=== PATIENT | female | born 1985 | race Hispanic/Latino ===

== ENCOUNTER 2017-03-26 15:01 | Outpatient (CLI) | payer OTHER ==
--- NOTE | 2017-03-26 17:26 | ULT ---
OBSTETRIC SONOGRAM 03/26/17 HISTORY: Second trimester . evaluation. FINDINGS: Multiple transabdominal sonographic views of the gravid uterus show a single intrauterine gestation in breech presentation. The cervix is closed and 4.6 cm in length. Amniotic fluid is within normal l imits. Grade 0 placenta is predominantly posterior. No gross intracranial abnormalities are apparent . spine and kidneys are intact as visualized. Three vessel cord shows a normal insertion. Violetta urements are as follows: Biparietal diameter 19 weeks, 2 days Head circumference 19 weeks, 3 days Abdominal circumference 19 weeks, 5 days Femur length 19 weeks, 3 days Estimated date of delivery based on today's sonogram is 08/17/17. Hadlock percentile equals 72%. IMPRESSION: Single viable intrauterine gestation with estimated gestational age based on today's sonogram of 19 weeks, 3 days. POS: TONE
== END 2017-03-26 15:02 | disposition home or self-care (01) ==
LOC: ULT 15:01
PROVIDERS: ATTEND Family Medicine
DX: Z33.1 Pregnant state, incidental (principal); Z3A.19 19 weeks gestation of pregnancy
CPT/HCPCS: 76805

== ENCOUNTER 2017-04-18 17:12 | Inpatient (IN) | payer OTHER ==
[2017-04-18 17:40] LABS: #Basophils 0.1 thou/uL (0.0-0.2); #Eosinphils 0.3 thou/uL (0.0-0.7); #Lymphocytes 2.4 thou/uL (1.20-3.40); #Monocytes 0.8 thou/uL (0.11-0.59); #Neutrophils 8.6 thou/uL (1.40-6.50); %Basophils 0.6 % (0.0-1.0); %Eosinophils 2.3 % (0.0-10.0); %Monocytes 6.6 % (0.0-10.0); Hematocrit 31.3 % (36.0-47.0); Mean Platelet Volume 6.1 fL (7.4-10.4); Red Blood Cell (RBC) Count 3.39 mill/uL (4.20-5.40); White Blood Cell (WBC) Count 12.1 thou/uL (4.8-10.8)
[2017-04-18] MEDS ORDERED: Ondansetron HCl/PF 4 MG/2 ML Vial ONE (17:44)
[2017-04-18 17:59] LABS: ALT (SGPT) 14 U/L (8-55); AST (SGOT) 18 U/L (5-34); Alkaline Phosphatase 92 U/L (40-150); Anion Gap 14 mmol/L (10-20); BUN (Urea Nitrogen) 10 mg/dL (7.0-18.7); Bilirubin, Total 0.2 mg/dL (0.2-1.2); Calc. Creatinine Clearance 0 mL/min (70-130); Calcium 9.4 mg/dL (7.8-10.44); Carbon Dioxide 21 mmol/L (22-29); Chloride 105 mmol/L (98-107); Estimated GFR-MDRD 87; Globulin 3.3 g/dL (2.4-3.5); Lipase 4 U/L (8-78); Protein, Total 6.7 g/dL (6.0-8.3)
[2017-04-18] MEDS ORDERED: Promethazine HCl 25 MG/ML VIAL ONE (20:52)
[2017-04-18 21:12] LABS: Bilirubin Small (Negative); Blood, Urine Large (Negative); Glucose, Urine (Dipstick) Negative (Negative); Ketone, Urine Trace mg/dL (Negative); Nitrite Negative (Negative); Protein, Urine (Dipstick) 300 mg/dL (Neg-Trace)
[2017-04-18 21:13] LABS: Bacteria/HPF None Seen HPF (None Seen); RBC/HPF GREATER THAN 50-TNTC HPF (0-3); Squamous Epithelial 0-3 HPF (0-3)
[2017-04-18 21:17] LABS: Hyaline Casts/LPF 4-6 HYALINE CAST LPF (0-3 Hyaline)
[2017-04-18] MEDS ORDERED: cefTRIAXone\\ROCEPHIN 1 GM VIAL ONE (21:58)
[2017-04-18] MEDS ORDERED: Sodium Chloride 0.9% 100 ML ONE (21:58)
--- NOTE | 2017-04-18 22:50 | ULT ---
EXAM: RENAL ULTRASOUND 04/18/17 HISTORY: Pain. COMPARISON: 03/19/17 Patient is . TECHNIQUE: Longitudinal and transverse imaging of the kidneys is performed. FINDINGS: There is moderate bilateral hydronephrosis. A degree of left sided hydronephrosis has not significan tly changed. Interval development of right sided hydronephrosis. Right kidney measures 12.0 x 5.5 x 6.1 cm. Left kidney measures 6.6 x 12.1 x 5.7 cm. There is an ech ogenic focus in the lower pole of the left kidney likely representing a 6 mm calculus. Calculus appe ars to be in the renal parenchyma. There appears to be a stent in the left ureter, incompletely evaluated. The inferior portion of the stent appears to be in the urinary bladder. Neither ureteral jet is appr eciated. Questionable sediment in the urinary bladder. IMPRESSION: 1. Interval development of moderate right sided hydronephrosis. 2. Redemonstration of left sided hydronephrosis. There appears to be a stent in the left ureter . 3. Possible small amount of sediment in the urinary bladder. POS: TONE
--- NOTE | 2017-04-18 23:18 | PRG ---
DATE OF SERVICE: 04/18/2017 TIME: 2034 hours. This is the patient of Alyse Parry MD LOCATION: ER. DIAGNOSIS: Probable renal colic. HISTORY OF PRESENT ILLNESS: In brief, this is a 31-year-old G4, P3, who is at 22 weeks' based on re cent ultrasound performed on 03/27/2017, that put her at 19 weeks and 3 days. She is a patient of A maxx Parry MD. I was just contacted by Corey Parker DO, the resident assistant brood station manager i n the ER. I was notified that this patient has a known history of renal stones and has a left stent in place. She now presents with a left-sided flank pain concerning for renal colic. Ultrasound re vealed no bladder jet on the right, although no distinct calculi was noted. Dr. Harris with Urology has been consulted by the resident assistant and will see the patient tomorrow for Urology chaya wolfe. She is afebrile and normotensive. On lab assessment, her white blood cell count is 12.1 w ith hematocrit of 31, platelets are normal at 316. Creatinine is normal at 0.77. AST and ALT are a lso normal. Renal ultrasound has been performed with the formal reading is still pending. The resu lts are received were from the resident in the ER. ASSESSMENT: This is a 22-week, G4, P3, private patient of Dr. Parry with possible renal colic. RECOMMENDATIONS: 1. I have recommended that Dr. Parker notify Dr. Parry as that is her private practitioner. 2. I have recommended that the admitting team be Obstetrics (Dr. Parry) with Urology consultation as she is over 22 weeks. 3. I have also recommended Dr. Parker to check and confirm heart tones as well as perform a cervical exam to rule out any impending cervical dilation. 4. Urine culture is pending. 5. Urinalysis is also pending. 6. IV fluid hydration. 7. Dr. Harris with Urology will see the patient tomorrow. In brief, if Dr. Parry desires, I will be happy to admit the patient to the OB Hospitalist team. H dennys, for professional courtesy, we will notify Dr. Parry first for her acknowledgement of the pa tieashley's arrival and admission to her.
[2017-04-18] MEDS ORDERED: Ondansetron HCl/PF 4 MG/2 ML Vial IVP PRN (23:38)
[2017-04-18] MEDS ORDERED: Acetaminophen 325 MG TAB PO PRN (23:38)
[2017-04-18] MEDS ORDERED: Ondansetron ODT 4 MG TAB SL PRN (23:38)
[2017-04-18] MEDS ORDERED: Lactated Ringer's 1,000 ML IV SCH (23:45)
[2017-04-19] MEDS ORDERED: Ondansetron ODT 4 MG TAB SL PRN (00:35)
[2017-04-19] MEDS ORDERED: Acetaminophen 325 MG TAB PO PRN ×2 (00:35→10:39)
[2017-04-19] MEDS ORDERED: Ondansetron HCl/PF 4 MG/2 ML Vial IVP PRN (00:35)
[2017-04-19] MEDS: Lactated Ringer's 1,000 ML IV SCH ×2 (01:05→09:30)
[2017-04-19 08:42] VITALS: BP 103/55; TEMP 98.3
[2017-04-19] MEDS ORDERED: HYDROcodone/Acetaminophen 5/325 mg Tablet PO PRN (10:39)
[2017-04-19] MEDS ORDERED: Sodium Chloride 0.9% 1,000 ML IV SCH (10:45)
--- NOTE | 2017-04-19 11:51 | SS ---
SHORT STAY SUMMARY CHIEF COMPLAINT: Right flank pain. HISTORY OF PRESENT ILLNESS: This is a 31-year-old G4, P3 at 22 weeks gestation with a known history of recurrent kidney stents who presents with new onset right flank pain. Previously during this pr egnancy, she has been treated with urologist at [facility], Dr. Feliciano who placed a stent in h er left ureter for multiple stones; however, the pain she experienced last night was new onset on th e right side which is what prompted her to come to the emergency department. Notably, she does have a followup appointment already scheduled with Dr. Feliciano from Friday where he was going to remove one of the stents from her left ureter. PAST MEDICAL HISTORY: Significant for kidney stones. PAST SURGICAL HISTORY: Left ureteral stent placement. HOME MEDICATIONS: 1. vitamins. 2. Oxybutynin 5 mg t.i.d. 3. Macrobid 100 mg daily. 4. Iron 1 tablet daily. ALLERGIES: No known drug allergies. SOCIAL HISTORY: No smoking, drinking or drug use. FAMILY HISTORY: Noncontributory. PHYSICAL EXAMINATION: VITAL SIGNS: On admission, temperature 98.3, pulse 59, respirations 18, blood pressure 103/55. Fet al heart tones were in the 140s. GENERAL: This is a well-developed, well-nourished female in no apparent distress. HEENT: Unremarkable. CARDIAC: Regular rate and rhythm with no murmurs. LUNGS: Clear to auscultation bilaterally. ABDOMEN: Soft, nontender, nondistended with normoactive bowel sounds. BACK: Shows no costovertebral angle tenderness or flank pain. Uterine fundus is at 22 cm and nonte nder. Good movement is reported. EXTREMITIES: Show no clubbing, cyanosis, or edema. NEUROLOGIC: Nonfocal. LABORATORY DATA: She had a white count of 12.1, hemoglobin of 10.6, and platelets of 316. Comprehe nsive metabolic panel was normal. Urinalysis showed large blood, greater than 50 WBCs, greater than 50 RBCs, 300 of protein. ASSESSMENT AND PLAN AND HOSPITAL COURSE: The patient was admitted overnight for observation and may n management with Urology to consult this morning for management of new onset right hydronephrosis; however, after morphine in the emergency department, the patient's pain completely resolved. She wa s pain free overnight and did not require any additional pain medications. We spoke with Dr. aMrek Harris this morning covering for her urologist, Dr. Feliciano and upon hearing that the patient was may n free, he stated that there was nothing he would do as far as treating her and that she has a follo wup appointment in [address] Feliciano as an outpatient. From his opinion, she could be disch arged home. Therefore, the patient was discharged as soon as I saw her this morning to follow up wi th Dr. Feliciano is already scheduled on 04/21/2016. No new medications were started. She briones s a followup scheduled with Dr. Alyse Parry for her in about 3 weeks. She also has a foll ow up with a silviculture forester on of this coming week as well.
== END 2017-04-19 11:48 | disposition home or self-care (01) | DRG 781 ==
LOC: ERS 17:12 → 3SE 21:55 → ERS 23:25
PROVIDERS: ADMIT Family Medicine; ATTEND Family Medicine
DX: O99.89 Other specified diseases and conditions complicating pregnancy, childbirth and the puerperium (principal); N13.30 Unspecified hydronephrosis; Z3A.22 22 weeks gestation of pregnancy; Z87.442 Personal history of urinary calculi; Z97.8 Presence of other specified devices; Z87.891 Personal history of nicotine dependence
CPT/HCPCS: 36415; 76770; 80053; 81003; 81015; 83690; 85025; 87086; 96361; 96365; 96367; 96375; 96376; J0696; J2270; J2405; J2550; J7050

== ENCOUNTER 2017-08-15 22:29 | Inpatient (IN) | payer OTHER ==
[2017-08-15 23:04] VITALS: BMI 33.0
[2017-08-15] MEDS ORDERED: Lactated Ringer's 1,000 ML IV SCH (23:45)
[2017-08-15] MEDS ORDERED: Ondansetron HCl/PF 4 MG/2 ML Vial IVP PRN (23:59)
[2017-08-15] MEDS ORDERED: LR / Pitocin 40 units/1000 ml 1,000 ML IV PRN (23:59)
[2017-08-15] MEDS ORDERED: Diphenoxylate HCl/Atropine Tablet PO PRN (23:59)
[2017-08-15] MEDS ORDERED: Methylergonovine 0.2 MG/ML VIAL IM PRN (23:59)
[2017-08-15] MEDS ORDERED: Misoprostol 200 MCG TAB PR PRN (23:59)
[2017-08-15] MEDS ORDERED: Lidocaine 1% (PF) 30 ML VIAL SC PRN (23:59)
[2017-08-15] MEDS ORDERED: Ibuprofen 800 MG TAB PO PRN (23:59)
[2017-08-15] MEDS ORDERED: Carboprost 250 MCG/ML AMP IM PRN (23:59)
[2017-08-16 01:21] LABS: Hemoglobin 11.5 g/dL (12.0-16.0); Mean Corpuscular HGB CONC 34.7 g/dL (32.0-36.0); Mean Corpuscular Hemoglobin 31.4 pg (27.0-31.0); Mean Corpuscular Volume 90.6 fl (81.0-99.0); Platelet Count 255 thou/uL (130-400); RBC Distribution Width 12.9 % (11.5-14.5); Red Blood Cell (RBC) Count 3.65 mill/uL (4.20-5.40); White Blood Cell (WBC) Count 10.6 thou/uL (4.8-10.8)
[2017-08-16] MEDS ORDERED: Bupivacaine 20 ML, Fentanyl 400 MCG in Sodium Chloride 0.9% 72 ML EPIDURAL SCH (01:45)
[2017-08-16 02:02] LABS: HBSAg Index 0.46 S/CO (0-0.99); Hep B Surf Ag Non-Reactive S/CO (NonReactive)
[2017-08-16] MEDS ORDERED: Eucerin (Mineral Oil/Petrolatum,White) 30 gm Jar TOP PRN (02:16)
[2017-08-16] MEDS ORDERED: Promethazine HCl 25 MG/ML VIAL IM PRN (02:16)
[2017-08-16] MEDS ORDERED: Naloxone HCl 0.4 mg/ml Vial IVP PRN ×2 (02:16)
[2017-08-16] MEDS ORDERED: diphenhydrAMINE 50 MG/ML VIAL IVP PRN (02:16)
[2017-08-16] MEDS ORDERED: Ondansetron HCl/PF 4 MG/2 ML Vial IVP PRN ×2 (02:16→09:08)
[2017-08-16] MEDS ORDERED: Acetaminophen 325 MG TAB PO PRN (02:16)
[2017-08-16] MEDS ORDERED: ePHEDrine/0.9% NaCl/PF SYRINGE 50 mg/10 ml SLOW IVP PRN (02:16)
[2017-08-16] MEDS ORDERED: Lactated Ringer's 500 ML IV PRN (02:16)
[2017-08-16] MEDS ORDERED: Communication Order-Pharmacy FS SCH (02:30)
[2017-08-16] MEDS ORDERED: Fentanyl 4mcg/Marcaine 0.1% Cassette 100 ML EPIDURAL SCH (02:30)
[2017-08-16] MEDS: Lactated Ringer's 1,000 ML IV SCH ×2 (02:42→15:41)
[2017-08-16 04:53] LABS: Syphilis Antibody Nonreactive (Nonreactive); Syphilis Antibody Index 0.04 S/CO (<1.00 Non-Reactive)
[2017-08-16] MEDS ORDERED: LR 500 ML/Oxytocin 10 units 500 ML IVPB SCH (05:45)
[2017-08-16] MEDS ORDERED: Preparation H Ointment 28 GM TUBE PR PRN (09:08)
[2017-08-16] MEDS ORDERED: Acetaminophen/Codeine 30-300mg Tablet PO PRN (09:08)
[2017-08-16] MEDS ORDERED: Lanolin Ointment 7 GM TUBE TOP PRN (09:08)
[2017-08-16] MEDS ORDERED: Adacel (T-DAP) 0.5 ML VIAL IM ONE (09:08)
[2017-08-16] MEDS ORDERED: Bisacodyl 10 MG SUPP PR PRN (09:08)
[2017-08-16] MEDS ORDERED: Benzocaine/Menthol 20-0.5% 60 ML CAN TOP PRN (09:08)
[2017-08-16] MEDS ORDERED: LR / Pitocin 40 units/1000 ml 1,000 ML IV SCH (09:08)
[2017-08-16] MEDS ORDERED: Milk Of Magnesia 30 ML UDCUP PO PRN (09:08)
[2017-08-16] MEDS ORDERED: Ferrous Sulfate 325 MG TAB PO SCH (09:15)
--- NOTE | 2017-08-16 11:08 | HP ---
DATE OF SERVICE: 08/15/2017 CHIEF COMPLAINT: Contraction, loss of mucus plug. HISTORY OF PRESENT ILLNESS: At the time of presentation, Ms. Gunter is a 3, para 2 female at 39+ weeks who sees Dr. Alyse Parry for care. The patient presents with complaints of contra ctions since this afternoon and loss of mucus plug. She denies any vaginal bleeding or leakage of fl uid. She reports good movement. Limited review of systems per HPI. HISTORY: Please see labor and delivery admission record included by reference. PHYSICAL EXAMINATION: VITAL SIGNS: Within normal limits. The patient is afebrile. GENERAL: Nontoxic appearing female in no acute distress. OBSTETRIC: heart tracing is category 1. Tocodynamometer shows contractions q.2-4 minutes. HEENT: Normocephalic, atraumatic. LUNGS: Respirations are unlabored. GENITOURINARY: Cervix was examined initially and found to be 3 cm dilated, 40% effaced, -4 station, posterior in position. After approximately 1 hour, cervix is 4 cm dilated, 70% effaced, -2 station a nd mid position. EXTREMITIES: Without cyanosis, clubbing or edema. NEUROLOGIC: Alert and oriented x3. No focal deficits. ASSESSMENT AND PLAN: 1. Term intrauterine with category 1 tracing. 2. Early labor. The patient states that she is GBS negative. The patient will be admitted to Dr. Nathalia perkins's service for labor management and Delivery.
[2017-08-16] MEDS: Ibuprofen 800 MG TAB PO SCH ×2 (13:32→21:10)
[2017-08-16] MEDS: Prenatal Vitamin 1 TAB PO SCH (13:35)
[2017-08-16] MEDS: Docusate Calcium (SURFAK) 240 MG CAP PO SCH ×2 (13:35→21:10)
[2017-08-16] MEDS: Ferrous Sulfate 325 MG TAB PO SCH (18:26)
[2017-08-16] MEDS: HYDROcodone/Acetaminophen 5/325 mg Tablet PO PRN ×2 (18:30→23:06)
[2017-08-17] MEDS: Ibuprofen 800 MG TAB PO SCH ×2 (05:06→14:04)
[2017-08-17 08:22] VITALS: BP 98/52; TEMP 98.5
[2017-08-17] MEDS: Prenatal Vitamin 1 TAB PO SCH (09:06)
[2017-08-17] MEDS: Ferrous Sulfate 325 MG TAB PO SCH (09:06)
[2017-08-17] MEDS: Docusate Calcium (SURFAK) 240 MG CAP PO SCH (09:06)
[2017-08-17] MEDS ORDERED: Bupivacaine 0.25% HCL 30 ML VIAL ONE (11:11)
[2017-08-17] MEDS ORDERED: ePHEDrine/0.9% NaCl/PF SYRINGE 50 mg/10 ml ONE (11:11)
== END 2017-08-17 14:43 | disposition home or self-care (01) | DRG 775 ==
LOC: SDC 22:29 → L&D/OP 22:29 → L&D 08-16 00:24 → 3SW 08-16 11:15
PROVIDERS: ADMIT Family Medicine; ATTEND Family Medicine
PROC: 10E0XZZ Delivery of Products of Conception, External Approach (ICD-10-PCS; principal; 2017-08-16)
PROC: 10907ZC Drainage of Amniotic Fluid, Therapeutic from Products of Conception, Via Natural or Artificial Opening (ICD-10-PCS; 2017-08-16)
PROC: 3E0234Z Introduction of Serum, Toxoid and Vaccine into Muscle, Percutaneous Approach (ICD-10-PCS; 2017-08-17)
DX: O80 Encounter for full-term uncomplicated delivery (principal); Z37.0 Single live birth; Z3A.39 39 weeks gestation of pregnancy
CPT/HCPCS: 51702; 85027; 86780; 87340; 90715; 99285; J3010; J3490; J7050; J7120; S0020

== ENCOUNTER 2022-04-15 20:34 | Inpatient (IN) | payer SELFPAY ==
[2022-04-15 21:45] LABS: #Eosinphils 0.2 thou/uL (0.0-0.7); #Lymphocytes 2.9 thou/uL (1.20-3.40); #Monocytes 0.9 thou/uL (0.11-0.59); #Neutrophils 5.8 thou/uL (1.40-6.50); %Basophils 0.4 % (0.0-1.0); %Eosinophils 2.3 % (0.0-10.0); %Lymphocytes 29.1 % (21.0-51.0); %Neutrophils 59.2 % (42.0-75.0); Hemoglobin 11.8 g/dL (12.0-16.0); Mean Corpuscular HGB CONC 32.5 g/dL (32.0-36.0); Mean Corpuscular Hemoglobin 29.3 pg (27.0-31.0); Mean Corpuscular Volume 90.2 fL (78.0-98.0); Mean Platelet Volume 6.5 fL (7.4-10.4); Platelet Count 307 thou/uL (130-400); RBC Distribution Width 12.3 % (11.5-14.5); Red Blood Cell (RBC) Count 4.04 mill/uL (4.20-5.40); White Blood Cell (WBC) Count 9.8 thou/uL (4.8-10.8)
[2022-04-15 21:52] LABS: BHCG - Serum Negative (NEGATIVE); Pregs Control Background? CLEAR/WHITE (CLR/WHITE); Pregs Control Bar Appear? YES (CONTROL BAR)
[2022-04-15 22:02] LABS: ALT (SGPT) 13 U/L (8-55); AST (SGOT) 11 U/L (5-34); Albumin 4.1 g/dL (3.5-5.0); Alkaline Phosphatase 70 U/L (40-110); Anion Gap 14 mmol/L (10-20); BUN (Urea Nitrogen) 13 mg/dL (7.0-18.7); Bilirubin, Total 0.6 mg/dL (0.2-1.2); Calc. Creatinine Clearance 0 mL/min (70-130); Calcium 9.9 mg/dL (7.8-10.44); Carbon Dioxide 25 mmol/L (22-29); Chloride 106 mmol/L (98-107); Estimated GFR 75; Globulin 2.9 g/dL (2.4-3.5); Glucose 103 mg/dL (70-105); Potassium 4.2 mmol/L (3.5-5.1); Sodium 141 mmol/L (136-145)
[2022-04-15] MEDS ORDERED: Ondansetron PF 4 MG/2 ML Vial ONE (22:15)
[2022-04-15] MEDS ORDERED: Ketorolac Tromethamine 30 MG/ML VIAL ONE (22:15)
[2022-04-15] MEDS ORDERED: Morphine 4 MG/ML VIAL ONE (23:07)
[2022-04-15 23:28] LABS: Bilirubin Negative (Negative); Blood, Urine Trace (Negative); Calcium Oxalate Crystals Rare HPF (None Seen); Clarity Clear (Clear); Glucose, Urine (Dipstick) Normal (Negative); Ketone, Urine Negative (Negative); Leukocyte 25 Leu/uL (Negative); Nitrite Negative (Negative); Protein, Urine (Dipstick) 10 mg/dL (Neg-Trace); Specific Gravity, Urine 1.025 (1.002-1.036); Squamous Epithelial 0-3 HPF (0-3); Urobilinogen Normal mg/dL (Less than 2); WBC/HPF 21-50 HPF (0-3); pH, Urine 5.5 (5.0-9.0)
[2022-04-15 23:30] LABS: Bacteria/HPF 1+ HPF (None Seen)
[2022-04-16] MEDS ORDERED: cefTRIAXone\\ROCEPHIN 1 GM VIAL ONE (00:35)
[2022-04-16] MEDS ORDERED: Fentanyl 100 MCG/2 ML VIAL ONE (01:00)
[2022-04-16] MEDS ORDERED: Ondansetron ODT 4 MG TAB PO PRN (01:15)
[2022-04-16] MEDS ORDERED: Senokot S 8.6-50 MG TAB PO PRN (01:15)
[2022-04-16] MEDS ORDERED: Morphine 2 MG/ML VIAL SLOW IVP PRN ×2 (01:15→01:23)
[2022-04-16] MEDS ORDERED: Bisacodyl 5 MG TAB PO PRN (01:15)
[2022-04-16] MEDS ORDERED: Ketorolac Tromethamine 30 MG/ML VIAL IVP PRN (01:26)
[2022-04-16] MEDS ORDERED: Morphine 4 MG/ML VIAL SLOW IVP PRN (01:32)
[2022-04-16] MEDS ORDERED: cefTRIAXone\\ROCEPHIN 1 GM in Sodium Chloride 0.9% 100 ML IVPB SCH (02:00)
[2022-04-16] MEDS ORDERED: Tamsulosin HCl 0.4 MG CAP PO SCH ×2 (02:00→21:00)
[2022-04-16 02:37] VITALS: BMI 36.4
[2022-04-16] MEDS: oxyCODONE 5 MG TAB PO PRN ×2 (03:10→14:16)
[2022-04-16 05:21] LABS: SARS-CoV-2 NAA Rapid Test Not Detected (NotDetected)
[2022-04-16 06:38] LABS: #Eosinphils 0.2 thou/uL (0.0-0.7); #Lymphocytes 2.8 thou/uL (1.20-3.40); #Monocytes 0.9 thou/uL (0.11-0.59); #Neutrophils 4.7 thou/uL (1.40-6.50); %Basophils 0.5 % (0.0-1.0); %Eosinophils 2.2 % (0.0-10.0); %Lymphocytes 32.5 % (21.0-51.0); %Monocytes 9.9 % (0.0-10.0); Mean Corpuscular HGB CONC 32.6 g/dL (32.0-36.0); Mean Corpuscular Hemoglobin 29.6 pg (27.0-31.0); Mean Corpuscular Volume 90.7 fL (78.0-98.0); Mean Platelet Volume 6.5 fL (7.4-10.4); Platelet Count 253 thou/uL (130-400); RBC Distribution Width 12.1 % (11.5-14.5); Red Blood Cell (RBC) Count 3.37 mill/uL (4.20-5.40); White Blood Cell (WBC) Count 8.6 thou/uL (4.8-10.8)
[2022-04-16 06:51] LABS: Anion Gap 9 mmol/L (10-20); BUN (Urea Nitrogen) 13 mg/dL (7.0-18.7); Calc. Creatinine Clearance 104 mL/min (70-130); Calcium 8.8 mg/dL (7.8-10.44); Carbon Dioxide 25 mmol/L (22-29); Chloride 109 mmol/L (98-107); Estimated GFR 75; Glucose 98 mg/dL (70-105); Potassium 3.9 mmol/L (3.5-5.1); Sodium 139 mmol/L (136-145)
[2022-04-16] MEDS ORDERED: Meloxicam 15 MG TAB PO SCH (09:00)
[2022-04-16] MEDS: Acetaminophen 500 MG TAB PO SCH ×3 (09:01→20:46)
[2022-04-16] MEDS: Famotidine 20 MG TAB PO SCH ×2 (09:01→20:47)
[2022-04-16] MEDS: Lactated Ringer's 1,000 ML IV SCH ×2 (14:17→20:44)
[2022-04-16] MEDS ORDERED: Midazolam HCl 2 mg/2 ml Vial ONE ×2 (15:13→15:38)
[2022-04-16] MEDS ORDERED: fentaNYL Citrate/PF 100 MCG/2 ML SYRINGE ONE (15:13)
[2022-04-16] MEDS ORDERED: Ondansetron PF 4 MG/2 ML Vial ONE (15:54)
[2022-04-16] MEDS ORDERED: PROPOFOL 200 MG/20 ML VIAL ONE (15:54)
[2022-04-16] MEDS ORDERED: Dexamethasone 20 MG/5 ML VIAL ONE (15:54)
[2022-04-16] MEDS ORDERED: Lidocaine 1% MPF 2 ML VIAL ONE (15:54)
[2022-04-16] MEDS ORDERED: Iopamidol 15 ML ONE (16:07)
[2022-04-16] MEDS ORDERED: B & O ONE (16:17)
[2022-04-17] MEDS ORDERED: cefTRIAXone\\ROCEPHIN 2 GM in Sodium Chloride 0.9% 100 ML IVPB SCH (01:00)
[2022-04-17] MEDS: Lactated Ringer's 1,000 ML IV SCH ×2 (02:42→12:34)
[2022-04-17 05:24] LABS: #Lymphocytes 0.9 thou/uL (1.20-3.40); #Monocytes 0.2 thou/uL (0.11-0.59); #Neutrophils 6.6 thou/uL (1.40-6.50); %Eosinophils 0.1 % (0.0-10.0); %Lymphocytes 11.2 % (21.0-51.0); %Monocytes 2.6 % (0.0-10.0); %Neutrophils 86.2 % (42.0-75.0); Hemoglobin 10.9 g/dL (12.0-16.0); Mean Corpuscular HGB CONC 32.5 g/dL (32.0-36.0); Mean Corpuscular Hemoglobin 29.8 pg (27.0-31.0); Mean Corpuscular Volume 91.9 fL (78.0-98.0); Mean Platelet Volume 6.6 fL (7.4-10.4); Platelet Count 261 thou/uL (130-400); RBC Distribution Width 12.1 % (11.5-14.5); Red Blood Cell (RBC) Count 3.65 mill/uL (4.20-5.40); White Blood Cell (WBC) Count 7.7 thou/uL (4.8-10.8)
[2022-04-17 05:45] LABS: Anion Gap 10 mmol/L (10-20); BUN (Urea Nitrogen) 11 mg/dL (7.0-18.7); Calc. Creatinine Clearance 124 mL/min (70-130); Carbon Dioxide 23 mmol/L (22-29); Chloride 110 mmol/L (98-107); Estimated GFR 92; Glucose 133 mg/dL (70-105); Sodium 139 mmol/L (136-145)
[2022-04-17] MEDS: Acetaminophen 500 MG TAB PO SCH (09:00)
[2022-04-17] MEDS: Famotidine 20 MG TAB PO SCH (09:01)
[2022-04-17 13:07] VITALS: BP 135/84; TEMP 98.6
== END 2022-04-17 13:27 | disposition home or self-care (01) | DRG 661 ==
LOC: ERS 20:34 → OBSVTOIN 04-16 01:15 → T4-A 04-16 01:15
PROVIDERS: ADMIT Internal Medicine; ATTEND Internal Medicine
PROC: 0T778DZ Dilation of Left Ureter with Intraluminal Device, Via Natural or Artificial Opening Endoscopic (ICD-10-PCS; principal; 2022-04-16)
PROC: BT1F1ZZ Fluoroscopy of Left Kidney, Ureter and Bladder using Low Osmolar Contrast (ICD-10-PCS; 2022-04-16)
DX: N13.6 Pyonephrosis (principal); Z20.822 Contact with and (suspected) exposure to COVID-19; D64.9 Anemia, unspecified; E28.2 Polycystic ovarian syndrome; Z79.899 Other long term (current) drug therapy; Z87.442 Personal history of urinary calculi; Z87.891 Personal history of nicotine dependence
CPT/HCPCS: 36415; 74176; 74420; 80048; 80053; 81003; 81015; 83690; 84703; 85025; 87086; C2617; J0696; J1100; J1885; J2250; J2270; J2405; J2704; J3010; J3490; J7120; Q9967; U0002

== ENCOUNTER 2022-05-12 23:27 | Emergency (ER) | payer SELFPAY ==
[2022-05-12] MEDS ORDERED: Ondansetron PF 4 MG/2 ML Vial ONE (23:44)
[2022-05-12] MEDS ORDERED: Morphine 4 MG/ML VIAL ONE (23:44)
[2022-05-12 23:58] LABS: #Basophils 0.1 thou/uL (0.0-0.2); #Eosinphils 0.3 thou/uL (0.0-0.7); #Lymphocytes 3.7 thou/uL (1.20-3.40); #Monocytes 0.8 thou/uL (0.11-0.59); #Neutrophils 6.9 thou/uL (1.40-6.50); %Basophils 0.6 % (0.0-1.0); %Eosinophils 2.2 % (0.0-10.0); %Lymphocytes 31.4 % (21.0-51.0); %Monocytes 6.9 % (0.0-10.0); %Neutrophils 58.9 % (42.0-75.0); Hemoglobin 12.8 g/dL (12.0-16.0); Mean Corpuscular HGB CONC 33.4 g/dL (32.0-36.0); Mean Corpuscular Hemoglobin 29.6 pg (27.0-31.0); Mean Corpuscular Volume 88.7 fL (78.0-98.0); Mean Platelet Volume 6.1 fL (7.4-10.4); Platelet Count 348 thou/uL (130-400); RBC Distribution Width 12.4 % (11.5-14.5); Red Blood Cell (RBC) Count 4.33 mill/uL (4.20-5.40); White Blood Cell (WBC) Count 11.7 thou/uL (4.8-10.8)
[2022-05-13] MEDS ORDERED: Ketorolac Tromethamine 30 MG/ML VIAL ONE (00:05)
[2022-05-13 00:06] LABS: BHCG - Serum Negative (NEGATIVE); Pregs Control Background? CLEAR/WHITE (CLR/WHITE); Pregs Control Bar Appear? YES (CONTROL BAR)
[2022-05-13 00:20] LABS: ALT (SGPT) 22 U/L (8-55); AST (SGOT) 19 U/L (5-34); Albumin 4.5 g/dL (3.5-5.0); Alkaline Phosphatase 75 U/L (40-110); Anion Gap 15 mmol/L (10-20); BUN (Urea Nitrogen) 14 mg/dL (7.0-18.7); Bilirubin, Total 0.4 mg/dL (0.2-1.2); Calc. Creatinine Clearance 0 mL/min (70-130); Carbon Dioxide 26 mmol/L (22-29); Chloride 104 mmol/L (98-107); Estimated GFR 74; Globulin 3.1 g/dL (2.4-3.5); Glucose 104 mg/dL (70-105); Potassium 3.7 mmol/L (3.5-5.1); Protein, Total 7.6 g/dL (6.0-8.3); Sodium 141 mmol/L (136-145)
[2022-05-13] MEDS ORDERED: Morphine 4 MG/ML VIAL ONE (01:32)
[2022-05-13 01:57] LABS: Bacteria/HPF None Seen HPF (None Seen); Bilirubin Negative (Negative); Blood, Urine 3+ (Negative); Clarity Turbid (Clear); Glucose, Urine (Dipstick) Normal (Negative); Ketone, Urine Negative (Negative); Leukocyte 75 Leu/uL (Negative); Nitrite Negative (Negative); Protein, Urine (Dipstick) 200 mg/dL (Neg-Trace); RBC/HPF Greater than 50 HPF (0-3); Urobilinogen Normal mg/dL (Less than 2); WBC/HPF 21-50 HPF (0-3); pH, Urine 6.5 (5.0-9.0)
[2022-05-13 01:58] LABS: Specific Gravity, Urine 1.051 (1.002-1.036)
[2022-05-13] MEDS ORDERED: Iopamidol-370 76% 500 ML 1 ML ONE (15:39)
== END 2022-05-13 03:02 | disposition home or self-care (01) ==
LOC: ERS 23:27
DX: N13.2 Hydronephrosis with renal and ureteral calculous obstruction (principal); Z87.891 Personal history of nicotine dependence
CPT/HCPCS: 74177; 80053; 81003; 81015; 84703; 85025; 87086; 96374; 96375; 96376; J1885; J2270; J2405; Q9967

== ENCOUNTER 2022-05-17 13:17 | Day surgery (SDC) | payer SELFPAY ==
[2022-05-16 10:30] VITALS: BMI 35.2
[2022-05-17] MEDS ORDERED: Ketamine 50 MG/ML (10ML VIAL) ONE (13:48)
[2022-05-17] MEDS ORDERED: fentaNYL Citrate/PF 100 MCG/2 ML SYRINGE ONE ×2 (13:48→15:19)
[2022-05-17] MEDS ORDERED: Midazolam HCl 2 mg/2 ml Vial ONE (13:48)
[2022-05-17] MEDS ORDERED: SUGAMMADEX SODIUM 200 MG/2 ML VIAL ONE ×2 (13:51→16:56)
[2022-05-17] MEDS ORDERED: Lidocaine 1% MPF 2 ML VIAL ONE (13:53)
[2022-05-17] MEDS ORDERED: Iopamidol 30 ML ONE (13:57)
[2022-05-17] MEDS ORDERED: Levofloxacin 500 mg/D5W 100 ml Premix Bag ONE (14:22)
[2022-05-17] MEDS ORDERED: PROPOFOL 200 MG/20 ML VIAL ONE (14:26)
[2022-05-17] MEDS ORDERED: Rocuronium Bromide 10 MG/ML (10ML VIAL) ONE (14:26)
[2022-05-17] MEDS ORDERED: Ondansetron PF 4 MG/2 ML Vial ONE (14:26)
[2022-05-17] MEDS ORDERED: Dexamethasone 20 MG/5 ML VIAL ONE (14:26)
[2022-05-17] MEDS ORDERED: Metoclopramide HCl 10 MG/2 ML VIAL ONE (14:26)
[2022-05-17] MEDS ORDERED: B & O 30 MG SUPP ONE (15:11)
[2022-05-17] MEDS ORDERED: FENTANYL 50 MCG/ML VIAL 50 MCG/ML VIAL ONE ×3 (17:16→17:51)
[2022-05-17] MEDS ORDERED: Promethazine HCl 25 MG/ML VIAL ONE (17:24)
[2022-05-17] MEDS ORDERED: HYDROcodone/Acetaminophen 5/325 mg Tablet ONE ×2 (17:57)
[2022-05-17] MEDS ORDERED: Morphine 2 MG/ML VIAL ONE (18:42)
[2022-05-17] MEDS ORDERED: Ketorolac Tromethamine 30 MG/ML VIAL ONE (19:02)
== END 2022-05-17 19:30 | disposition home or self-care (01) ==
LOC: SDC 13:17
PROVIDERS: ATTEND Urology
PROC: 0TC48ZZ Extirpation of Matter from Left Kidney Pelvis, Via Natural or Artificial Opening Endoscopic (ICD-10-PCS; principal; 2022-05-17)
PROC: 0T778DZ Dilation of Left Ureter with Intraluminal Device, Via Natural or Artificial Opening Endoscopic (ICD-10-PCS; principal; 2022-05-17)
DX: N20.0 Calculus of kidney (principal); E28.2 Polycystic ovarian syndrome; E66.9 Obesity, unspecified; Z68.35 Body mass index [BMI] 35.0-35.9, adult; Z87.891 Personal history of nicotine dependence
CPT/HCPCS: 74420; 82365; 88300; C2617; J1100; J1885; J1956; J2250; J2270; J2405; J2550; J2704; J2765; J3010; Q9967